=== PATIENT | female | born 1955 | race Two or more races ===

== ENCOUNTER → 2019-02-03 | Outpatient (CLI) | payer OTHER | LOC: LAB 13:57 → LAB SHORT 13:57 | PROVIDERS: Student in an Organized Health Care Education/Training Program | DX: Z01.419 Encounter for gynecological examination (general) (routine) without abnormal findings (principal) | CPT/HCPCS: G0145 ==

== ENCOUNTER 2019-09-14 07:34 | Day surgery (SDC) | payer OTHER ==
[~2019-09-14] VITALS: Ht 160 cm; Wt 55.0 kg
[2019-09-14] MEDS ORDERED: DELZICOL400 M1 (08:01)
[2019-09-14] MEDS ORDERED: CLIMARA1 EACH (08:01)
--- NOTE | 2019-09-14 08:19 | NUR ---
09/14/19 0819 Pennie Lundberg 1 TRY HAND RIGHT BLEW 2 TRY RIGHT AC GOOD
[2019-09-14 13:22] LABS: Campylobacter Sp Not Detected (NOT DETECT); Plesiomonas Shigelloides Not Detected (NOT DETECT); Salmonella Sp Not Detected (NOT DETECT); Yersinia Enterocolitica Not Detected (NOT DETECT)
[2019-09-14 13:23] LABS: Adenovirus F 40/41 Not Detected (NOT DETECT); Astrovirus Not Detected (NOT DETECT); Cryptosporidium Not Detected (NOT DETECT); Cyclospora Cayetanensis Not Detected (NOT DETECT); E. Coli O157 Not Detected (NOT DETECT); Entamoeba Histolytica Not Detected (NOT DETECT); Enteroaggregative E. coli-EAEC Not Detected (NOT DETECT); Enteropathogenic E. coli-EPEC Not Detected (NOT DETECT); Enterotoxigenic E. coli-ETEC Not Detected (NOT DETECT); Giardia Lamblia Not Detected (NOT DETECT); Norovirus GI/GII Not Detected (NOT DETECT); Rotavirus A Not Detected (NOT DETECT); Sapovirus Not Detected (NOT DETECT); Shiga Toxin-prod E. coli-STEC Not Detected (NOT DETECT); Shigella/Enteroin E. coli-EIEC Not Detected (NOT DETECT); Vibrio Cholerae Not Detected (NOT DETECT); Vibrio Sp Not Detected (NOT DETECT)
== END 2019-09-14 09:51 | disposition home or self-care (01) ==
LOC: ORSCSDS 07:34
PROVIDERS: Student in an Organized Health Care Education/Training Program
PROC: 0DBE8ZX Excision of Large Intestine, Via Natural or Artificial Opening Endoscopic, Diagnostic (ICD-10-PCS; principal; 2019-09-14 09:00)
DX: K51.90 Ulcerative colitis, unspecified, without complications (principal); Z80.0 Family history of malignant neoplasm of digestive organs; K62.5 Hemorrhage of anus and rectum; Z79.899 Other long term (current) drug therapy
CPT/HCPCS: 0097U; 88305; J2704; J7120

== ENCOUNTER 2020-11-25 08:01 | Day surgery (SDC) | payer OTHER ==
[~2020-11-25] VITALS: Ht 160 cm; Wt 58.4 kg
[~2020-11-25 08:01] MED LIST: CLIMARA1 EACH; DELZICOL400 M1; DELZICOL400 M1 PO; ESTRADIOL0.5 MG PO; HYOS.125 PO; LOMOTIL 2.5-0.1 EACH PO; MESALAMINE4 GM/60 M2 PR; PSEUDOEPHEDRINE30 M2 PO; Promethazine HC25 M1 PO; TEMOVATE15 G1
== END 2020-11-25 10:59 | disposition home or self-care (01) ==
LOC: ORSCSDS 08:01
PROVIDERS: Student in an Organized Health Care Education/Training Program
PROC: 0DBK8ZX Excision of Ascending Colon, Via Natural or Artificial Opening Endoscopic, Diagnostic (ICD-10-PCS; principal; 2020-11-25 09:15)
PROC: 0DBP8ZX Excision of Rectum, Via Natural or Artificial Opening Endoscopic, Diagnostic (ICD-10-PCS; principal; 2020-11-25 09:15)
PROC: 0DBM8ZX Excision of Descending Colon, Via Natural or Artificial Opening Endoscopic, Diagnostic (ICD-10-PCS; principal; 2020-11-25 09:15)
PROC: 0DBE8ZX Excision of Large Intestine, Via Natural or Artificial Opening Endoscopic, Diagnostic (ICD-10-PCS; principal; 2020-11-25 09:15)
DX: K51.90 Ulcerative colitis, unspecified, without complications (principal); D12.2 Benign neoplasm of ascending colon; D12.4 Benign neoplasm of descending colon; K62.1 Rectal polyp; Z79.899 Other long term (current) drug therapy
CPT/HCPCS: 88305; J2704; J7120

== ENCOUNTER 2021-03-29 18:29 | Emergency (ER) | payer OTHER ==
[~2021-03-29] VITALS: Ht 160 cm; Wt 63.5 kg
== END 2021-03-29 20:22 | disposition home or self-care (01) ==
LOC: ER 18:29
DX: S61.212A Laceration without foreign body of right middle finger without damage to nail, initial encounter (principal); Z23 Encounter for immunization; Z88.0 Allergy status to penicillin; Z88.1 Allergy status to other antibiotic agents; Z79.3 Long term (current) use of hormonal contraceptives; Z79.899 Other long term (current) drug therapy; W23.0XXA Caught, crushed, jammed, or pinched between moving objects, initial encounter
CPT/HCPCS: 12001; 73140; 90471; 99283-25

== ENCOUNTER 2023-01-12 13:03 | Day surgery (SDC) | payer OTHER ==
[~2023-01-12] VITALS: Ht 157.5 cm; Wt 56.4 kg
[2023-01-12] MEDS ORDERED: VENL37.5 (13:22)
[2023-01-12] MEDS ORDERED: PROG100 (13:22)
[2023-01-12] MEDS ORDERED: MESALAMINE800 M7 (13:22)
--- NOTE | 2023-01-12 13:46 | NUR ---
01/12/23 1346 NARCISO JOINER VERSED 2MG IV PRE PROCEDURE PER DR ZHU
== END 2023-01-12 15:22 | disposition home or self-care (01) ==
LOC: ORSCSDS 13:03
PROVIDERS: Student in an Organized Health Care Education/Training Program
PROC: 0DB58ZX Excision of Esophagus, Via Natural or Artificial Opening Endoscopic, Diagnostic (ICD-10-PCS; principal; 2023-01-12 14:15)
PROC: 0DBL8ZX Excision of Transverse Colon, Via Natural or Artificial Opening Endoscopic, Diagnostic (ICD-10-PCS; principal; 2023-01-12 14:15)
PROC: 0DBE8ZX Excision of Large Intestine, Via Natural or Artificial Opening Endoscopic, Diagnostic (ICD-10-PCS; principal; 2023-01-12 14:15)
PROC: 0DBM8ZX Excision of Descending Colon, Via Natural or Artificial Opening Endoscopic, Diagnostic (ICD-10-PCS; principal; 2023-01-12 14:15)
PROC: 0DB78ZX Excision of Stomach, Pylorus, Via Natural or Artificial Opening Endoscopic, Diagnostic (ICD-10-PCS; principal; 2023-01-12 14:15)
DX: K21.9 Gastro-esophageal reflux disease without esophagitis (principal); K31.84 Gastroparesis; K51.90 Ulcerative colitis, unspecified, without complications; Z80.0 Family history of malignant neoplasm of digestive organs; Z86.010 Personal history of colon polyps; K29.70 Gastritis, unspecified, without bleeding; K31.7 Polyp of stomach and duodenum; D12.4 Benign neoplasm of descending colon; K22.2 Esophageal obstruction; Z79.899 Other long term (current) drug therapy
CPT/HCPCS: 88305; 88342; J2250; J2704; J7120

== ENCOUNTER 2023-09-23 11:56 | Day surgery (SDC) | payer OTHER ==
[~2023-09-23] VITALS: Ht 160 cm; Wt 65.4 kg
[~2023-09-23 11:56] MED LIST changes: +MESALAMINE800 M7; +PROG100; +VENL37.5
[2023-09-23] MEDS ORDERED: OMEP20ER (12:26)
[2023-09-23] MEDS ORDERED: CETI5 (12:26)
--- NOTE | 2023-09-23 13:35 | NUR ---
09/23/23 1335 Viraj Ozuna NORMAL SALINE FLUID DEFICIT OF [address] VINCENT NOTIFIED.
[2023-09-23 14:02] VITALS: BP 122/80
--- NOTE | 2023-09-23 14:47 | NUR ---
09/23/23 1447 NARCISO JOINER PT UP TO BATHROOM W SBA IN WC; PT VOIDED URINE W/O C/O PAIN OR DIFFICULTY. IV REMOVED ;INTACT WNL
== END 2023-09-23 14:38 | disposition home or self-care (01) ==
LOC: ORSCSDS 11:56
PROVIDERS: Obstetrics & Gynecology
PROC: 0UDB8ZX Extraction of Endometrium, Via Natural or Artificial Opening Endoscopic, Diagnostic (ICD-10-PCS; principal; 2023-09-23 13:00)
DX: N95.0 Postmenopausal bleeding (principal); N84.0 Polyp of corpus uteri; K21.9 Gastro-esophageal reflux disease without esophagitis; I73.00 Raynaud's syndrome without gangrene; Z79.899 Other long term (current) drug therapy
CPT/HCPCS: 88305; A9270; J1100; J1885; J2405; J2704; J3010; J7120